=== PATIENT | female | born 1940 | race Caucasian/White ===

== ENCOUNTER 2019-02-10 14:57 | Emergency (ER) | payer MEDICARE ==
[~2019-02-10] VITALS: Ht 154.9 cm; Wt 78.0 kg
[2019-02-10 15:01] VITALS: Ht 154.9 cm; Wt 78.0 kg
[2019-02-10 17:13] VITALS: BP 138/65
== END 2019-02-10 17:13 | disposition home or self-care (01) ==
LOC: ED 14:57
DX: S82.091A Other fracture of right patella, initial encounter for closed fracture (principal); I10 Essential (primary) hypertension; Z88.2 Allergy status to sulfonamides; W01.0XXA Fall on same level from slipping, tripping and stumbling without subsequent striking against object, initial encounter; Y93.89 Activity, other specified; Y92.89 Other specified places as the place of occurrence of the external cause; Y99.8 Other external cause status